=== PATIENT | female | born 1955 | race Two or more races ===

== ENCOUNTER 2016-09-27 16:13 | Emergency (ER) | payer BC ==
[~2016-09-27] VITALS: Ht 160 cm; Wt 83.9 kg
[2016-09-27 20:37] VITALS: BP 161/74
[2016-09-27] MEDS ORDERED: ACETAMINOPHEN/CODEINE#3 (300/30mg) TAB PO ONE (21:30)
== END 2016-09-27 21:29 | disposition home or self-care (01) ==
LOC: ER 16:21
DX: S01.01XA Laceration without foreign body of scalp, initial encounter (principal); S00.93XA Contusion of unspecified part of head, initial encounter; M19.90 Unspecified osteoarthritis, unspecified site; I10 Essential (primary) hypertension; G89.29 Other chronic pain; M25.562 Pain in left knee; W19.XXXA Unspecified fall, initial encounter; Y93.89 Activity, other specified; Y99.8 Other external cause status; Y92.89 Other specified places as the place of occurrence of the external cause
CPT/HCPCS: 12002; 70450

== ENCOUNTER 2016-10-05 10:49 | Emergency (ER) | payer BC ==
[~2016-10-05] VITALS: Ht 157.5 cm; Wt 83.9 kg
[2016-10-05 13:25] VITALS: BP 160/65
== END 2016-10-05 14:30 | disposition home or self-care (01) ==
LOC: ER 10:49
DX: S01.81XD Laceration without foreign body of other part of head, subsequent encounter (principal); M19.90 Unspecified osteoarthritis, unspecified site; I10 Essential (primary) hypertension

== ENCOUNTER 2016-10-08 20:01 | Emergency (ER) | payer BC ==
[~2016-10-08] VITALS: Ht 160 cm; Wt 83.9 kg
[2016-10-08 22:12] VITALS: BP 187/93
== END 2016-10-08 22:24 | disposition home or self-care (01) ==
LOC: ER 20:01
DX: S01.91XD Laceration without foreign body of unspecified part of head, subsequent encounter (principal); M19.90 Unspecified osteoarthritis, unspecified site; I10 Essential (primary) hypertension; Z48.02 Encounter for removal of sutures

== ENCOUNTER → 2023-01-13 | Outpatient (CLI) | payer OTHER ==
[~2023-01-13] VITALS: Ht 157.5 cm; Wt 79.4 kg
[~2023-01-13] MED LIST: ADENOSINE 67 MG in GIVE UN-DILUTED 0 ML IV ONE
== END | disposition home or self-care (01) ==
LOC: XYW 08:46
PROVIDERS: ATTEND Internal Medicine
DX: R94.31 Abnormal electrocardiogram [ECG] [EKG] (principal)
CPT/HCPCS: 78452; 93017; A9500; J0153

== ENCOUNTER → 2023-02-03 | Outpatient (CLI) | payer OTHER | END | disposition home or self-care (01) | LOC: XYW 12:37 | PROVIDERS: ATTEND Internal Medicine | DX: I08.0 Rheumatic disorders of both mitral and aortic valves (principal); R94.31 Abnormal electrocardiogram [ECG] [EKG] | CPT/HCPCS: 93306 ==